=== PATIENT | female | born 1980 | race Two or more races ===

== ENCOUNTER 2024-05-29 21:12 | Emergency (ER) | payer MEDICAID, SELFPAY ==
[2024-05-29 21:13] VITALS: BMI 34.7
[2024-05-29 21:51] VITALS: BP 128/84; PULSE 75; RESP 18; TEMP 37.2; O2SAT 98
--- NOTE | 2024-05-29 22:06 | PD.EDANX ---
ED Anxiety RME/HPI General Chief Complaint: Anxiety Stated Complaint: BACK PAIN, NUMBNESS TO HANDS FEELS ANXIOUS Time Seen by Provider: 05/29/24 21:54 Arrival date/time: 05/29/24 21:12 43 year old female present to emergency room with c/o of tingling/numbness for 2 days. history of anxiety in the past. recently found out family member past away in [place]. SEVERITY: Symptoms are described as being severe with limitations on activities of daily living CONTEXT: The patient is unable to identify any inciting events. DURATION/TIMING: The symptoms started approximately 2 days ASSOCIATED SYMPTOMS: The patient is unable to identify any other associated symptoms. MODIFYING FACTORS: The patient is unable to identify any alleviating or aggravating symptoms. PERTINENT ROS: no fevers, no cough, no pleuritic pain, no ripping or tearing sensations, denies any lower extremity edema and no unilateral swelling, no chest pain/shortness of breath no nausea,vomiting, diarrhea, no dizziness/headache no rash no loc/syncope episode no abd/back pain no dsyuria,urgency,frequency REVIEW OF SYSTEMS: See History of Present Illness - with the exception of those mentioned in the history of present illness, all other systems reviewed and reported as negative GENERAL: In general the patient is awake, interactive, in an emergency department gurney. HEAD/EYES/EARS/NOSE/THROAT: normo-cephalic, atraumatic, mucus membranes are moist, anicteric, palpebral conjunctiva is pink, trachea is midline. CARDIOVASCULAR: regular rate and regular rhythm, no murmurs, heart sounds are not distant, strong pulses in all four extremities that are equal and symmetric bilateral upper and lower extremities, normal capillary refill. CHEST/PULMONARY: normal chest rise and fall, good air movement, clear to auscultation bilaterally, normal inspiratory to expiratory ratios without evidence of respiratory distress. NECK: No midline/Paraspinal tenderness, no step off ROM/Strenght intact No Kernig and bruzinski sign. No trauma ABDOMEN: soft, not tender, no masses appreciated BACK: normal range of motion without pain. NEUROLOGICAL: cranio-facial features are symmetric, moves all four extremities equally without obvious limitations or weakness. EXTREMITY: no tenderness to palpation over the long bones or large joints of the bilateral upper and lower extremities, no joint swelling, no joint erythema, no signs of trauma, no unilateral leg swelling and no peripheral edema. SKIN: warm, dry, well-perfused, no jaundice, no rash, no telangiectasias or petechia. PSYCH: calm, cooperative, no evidence of psychosis or agitation Related Data Allergies Allergy/AdvReac Type Severity Reaction Status Date / Time No Known Allergies Allergy Verified 05/29/24 21:16 Course Course Course Narrative: Patient presenting with anxiety without evidence for suicidal ideation. Medical review of systems negative, no obvious disease on medical screening exam.? Patient provided ativan .05mg? ? Following which, patient stated they felt improved.? Patient monitored for a period of 2 hours.? Discussed supportive therapies, including going to bed at the same time every evening, regular exercise such as stretching and aerobics in the AM, using relaxation techniques such as muscle relaxation/imagery/massage/warm baths/etc, yoga, refrain from caffeinated and EtOH beverages in the PM, talking to family/friends or support group, taking up a hobby, listening to music or watching movies, deep breathing exercises, sleep hygiene, eating a healthy diet.? Discussed following up with primary care provider or mental health professional.? Patient discharged in stable, ambulatory condition.?? Plan:? Discharge from ED Patient instructed that if having thoughts of suicide, please call a doctor, friend, or family member and report to the nearest ER or hospital.? If you need to talk, you may also contact one of the following suicide hotlines:? N Follow up with pcp or mental health provider in 2 days.?? Instructed Pt to f/up w/ PCP or ETC should symptoms worsen or not improve. Pt verbally expressed understanding and all questions were addressed to Pt's satisfaction. Quality Measures none Orders Category Date Time Status EKG (ED ONLY) *Do not use* NOW Care 05/29/24 22:04 Active EKG (ED Only) Stat Exams 05/29/24 22:04 Ordered CBC Stat Lab 05/29/24 22:04 Ordered CMP [Comprehensive Metabolic Panel] Stat Lab 05/29/24 22:04 Ordered HCG,Qualitative Serum Stat Lab 05/29/24 22:04 Ordered TSH [Thyroid Stimulating Hormone] Stat Lab 05/29/24 22:04 Ordered Troponin I Stat Lab 05/29/24 22:04 Ordered LORazepam [Ativan] Med 05/29/24 22:04 Once 0.5 mg PO X1 ONE Vital Signs Vital signs: Vital Signs Temperature 99 F 05/29/24 21:51 Pulse Rate 75 05/29/24 21:51 Respiratory Rate 18 05/29/24 21:51 Blood Pressure 128/84 05/29/24 21:51 Pulse Oximetry (%) 98 05/29/24 21:51 Oxygen Delivery Method Room Air 05/29/24 21:51 Anxiety Patient data [place] [facility] [place] Clinical information provided by:: patient Social determinants that could affect healthcare access:: none Patient has the following chronic illnesses:: anxiety How is presenting disease/condition affected by chronic disease/condition?: exacerbated by Evaluation data The following diagnostics were reviewed and interpreted by me:: lab results and EKG tracing(s) Lab and/or radiology exams considered but not ordered:: n/a Interpretation Summary: cbc/cmp/trop/tsh wnl Medications / Prescriptions Medications or Prescriptions considered but not ordered:: n/a Medication administrations:: Medication Administration History Lorazepam (Lorazepam 0.5 Mg Tablet) 0.5 mg PO X1 ONE Stop: 05/29/24 22:05 Consultations Consultation(s) initiated? (list below): No Diagnosis Differential diagnosis anxiety: hyperventilation, panic disorder and acute anxiety Most likely diagnosis given after review of the tests above:: anxiety Admission Indicated Admission indicated?: not indicated Admission Request Was there a request for admission?: No Disposition Plan Disposition Plan: Discharge Discharge Attestation Discharge Attestation: The patient and all family members were given an opportunity to ask questions and understood the discharge instructions. Discharge instructions specifically effects, indications for sooner follow up or return to the emergency department, and the expected course of current diagnosis. Patient condition: Stable Discharge Plan Plan Patient Disposition: HOME (Self Care) Health Concerns: Follow up with PCP as directed Return to ED if sx worsen Prescriptions/Referrals Referrals: No Primary/Family,Physician [Primary Care Provider] - In 1 week Problem List Clinical Impression: Acute anxiety Patient/Caregiver Discharge Instructions Education Materials: ED Anxiety Reaction Print Language: Urdu Stand Alone Forms: Yudith Award Info., Patient Portal Info Letter
[2024-05-29] MEDS: LORazepam 0.5 MG TABLET PO (22:09)
[2024-05-29 23:06] LABS: Basophils % (Auto) 0 % (0-2.5); Eosinophils # (Auto) 0.1 Thou/mm3 (0.0-0.5); Eosinophils % (Auto) 1 % (0-10); Hematocrit 38.5 % (36.0-46.0); Hemoglobin 13.1 g/dL (12.0-16.0); Immature Granulocytes % (Auto) 0 % (0-0); Immature Granulocytes Auto 0.01 Thou/mm3 (0.00-0.00); Lymphocytes # (Auto) 2.6 Thou/mm3 (1.0-4.8); Lymphocytes % (Auto) 53 % (10-50); Mean Corpuscular Hemoglobin 30.7 pg (25.0-35.0); Mean Corpuscular Volume 90 fL (80-100); Monocytes # (Auto) 0.4 Thou/mm3 (0.0-0.8); Monocytes % (Auto) 9 % (0-12); Neutrophils # (Auto) 1.8 Thou/mm3 (1.8-7.7); Neutrophils % (Auto) 37 % (37-80); Nucleated Red Blood Cell % 0 /100 WBC (0); Platelet Count 190 Thou/mm3 (140-440); Red Blood Count 4.27 Miln/mm3 (4.00-5.20); White Blood Count 4.9 Thou/mm3 (3.6-11.0)
[2024-05-29 23:11] LABS: HCG,Qualitative Serum Negative
[2024-05-29 23:19] LABS: Alanine Aminotransferase 27 U/L (10-49); Albumin/Globulin Ratio 1.5 (1.2-2.2); Alkaline Phosphatase 90 U/L (46-116); Anion Gap 7 (7-16); Aspartate Amino Transferase 26 U/L (0-34); BUN/Creatinine Ratio 16 Ratio (12-20); Bilirubin,Total 0.5 mg/dL (0.3-1.2); Blood Urea Nitrogen 11 mg/dL (9-23); Calcium 8.6 mg/dL (8.3-10.6); Calcium (Corrected) 8.6 mg/dL (8.5-10.1); Carbon Dioxide 27.3 mMol/L (20.0-31.0); Chloride 105 mMol/L (98-107); Creatinine (Component) 0.7 mg/dL (0.6-1.3); Estimated Creatinine Clearance 107.7 mL/min (>60); Globulin 2.7 gm/dL (2.3-3.5); Glucose 102 mg/dL (74-106); Osmolality,Calculated 276 (275-295); Potassium 3.4 mMol/L (3.4-5.1); Sodium 139 mMol/L (136-145); Thyroid Stimulating Hormone 1.35 uIU/mL (0.55-4.78); Total Protein 6.7 gm/dL (5.7-8.2); Troponin I < 0.002 ng/mL (0.0-0.045); eGFR > 60 See Note
[2024-05-30 00:11] VITALS: BP 121/64; PULSE 78; RESP 19; TEMP 36.6; O2SAT 98
== END 2024-05-30 00:12 | disposition home or self-care (01) ==
PROVIDERS: Physician Assistant; Emergency Provider Emergency Medicine
DX: F41.9 Anxiety disorder, unspecified (principal)
CPT/HCPCS: 36415; 80053; 84443; 84484; 84703; 85025; 99283; A9270